=== PATIENT | female | born 1965 | race Caucasian/White ===

== ENCOUNTER 2019-12-07 09:57 | Emergency (ER) | payer OTHER ==
[~2019-12-07] VITALS: Ht 154.9 cm; Wt 68.0 kg
[2019-12-07 10:11] VITALS: BP_SYST 113
--- NOTE | 2019-12-07 10:12 | NUR ---
Patient to ER bed 6 to gown for evaluation. Side rails up.
--- NOTE | 2019-12-07 10:15 | NUR ---
Pt walked in to ER with c/o blood in the urine and urinary urgency x 3 days. Denies any pain, n/v at this time. V/S stable, pt is afebrile. Resting in bed, will continue to monitor.
--- NOTE | 2019-12-07 10:20 | NUR ---
ER Dr. Golden at bedside examining patient.
--- NOTE | 2019-12-07 10:28 | NUR ---
Clean catch urine sample collected as per orders
[2019-12-07] MEDS ORDERED: SULFAMETHOXAZOLE/TRIMETHOPR DS 1 TABLET PO ONE (10:45)
[2019-12-07] MEDS ORDERED: PHENAZOPYRIDINE HCL 100 MG TABLET PO ONE (10:45)
--- NOTE | 2019-12-07 11:00 | NUR ---
Patient given written and verbal discharge instructions and verbalizes understanding. ER MD discussed with patient the results and treatment provided. Patient in stable condition. ID arm band removed. Rx of Bactrim and Pyridium given. Patient educated on pain management and to follow up with PMD. Pain Scale 0. Opportunity for questions provided and answered. Medication side effect fact sheet provided.
== END 2019-12-07 11:03 | disposition home or self-care (01) ==
LOC: SED 09:57
DX: N39.0 Urinary tract infection, site not specified (principal); F32.9 Major depressive disorder, single episode, unspecified; F41.9 Anxiety disorder, unspecified; Z88.1 Allergy status to other antibiotic agents
CPT/HCPCS: 81002; 99283